=== PATIENT | female | born 1985 | race Caucasian/White ===

== ENCOUNTER 2016-05-27 12:19 | Emergency (ER) | payer OTHER ==
[2016-05-27 13:31] VITALS: BP 107/72
[2016-05-27] MEDS ORDERED: Acetaminophen TAB* 325 MG PO ONE (14:15)
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
[2016-05-27] MEDS ORDERED: Phenylephrine 0.5% NASAL* BTL RIGHT NARE ONE (14:29)
== END 2016-05-27 14:52 | disposition home or self-care (01) ==
LOC: UCCORT 12:19
DX: S09.92XA Unspecified injury of nose, initial encounter (principal); W50.0XXA Accidental hit or strike by another person, initial encounter; Y93.9 Activity, unspecified; Y92.199 Unspecified place in other specified residential institution as the place of occurrence of the external cause; Y99.0 Civilian activity done for income or pay; R04.0 Epistaxis; F17.210 Nicotine dependence, cigarettes, uncomplicated
CPT/HCPCS: 99212; A9270-GY; G0463

== ENCOUNTER 2016-05-31 09:09 | Emergency (ER) | payer SELFPAY ==
[2016-05-31 10:12] VITALS: BP 117/71
--- NOTE | 2016-05-31 10:31 | UC ---
Complaint Female HPI - HPI Summary HPI Summary: The patient comes in today for: 1. Dysuria: Onset: this morning. Palliative/provocative: Worse with urination. Quality: Burning. Region: --inside and outside. Severity: 07/31 Time: Constant. Associated symptoms: Fever: None. Back pain: None. Last UTI: Long time Recent antibiotics. * - History Of Current Complaint Chief Complaint: UCGU Stated Complaint: URINARY Time Seen by Provider: 05/31/16 10:20 Hx Obtained From: Patient Hx Last Menstrual Period: april - Allergies/Home Medications Allergies/Adverse Reactions: Allergies Allergy/AdvReac Type Severity Reaction Status Date / Time No Known Allergies Allergy Verified 05/31/16 10:12 PMH/Surg Hx/FS Hx/Imm Hx Previously Healthy: Yes Endocrine History Of: Denies: Diabetes, Thyroid Disease, Hyperthyroidism, Hypothyroidism, Dyslipidemia Cardiovascular History Of: Denies: Cardiac Disorders, Hypertension, Pacemaker/ICD, Myocardial Infarction , Congestive Heart Failure, Atrial Fibrillation, Deep Vein Thrombosis, Bleeding Disorders Respiratory History Of: Reports: Asthma - She will only use inhaler episodically. Denies: COPD, Bronchitis, Pneumonia, Pulmonary Embolism GI/ History Of: Denies: Gastroesophageal Reflux, Ulcer, Gastrointestinal Bleed, Gall Bladder Disease, Kidney Stones, Diverticulitis, Renal Disease, Urosepsis Neurological History Of: Denies: TIA, CVA, Dementia, Seizures, Migraine Psychological History Of: Denies: Anxiety, Depression, Bipolar Disorder, Schizophrenia, Post Traumatic Stress Disorder Cancer History Of: Denies: Lung Cancer, Colorectal Cancer, Breast Cancer, Prostate Cancer, Cervical Cancer Other History Of: Negative For: HIV, Hepatitis B, Hepatitis C, Anticoagulant Therapy - Surgical History Surgical History: Yes Surgery Procedure, Year, and Place: -TWICE. tubal ligation - Family History Known Family History: Negative: Cardiac Disease, Hypertension - Social History Occupation: Employed Full-time Alcohol Use: None Substance Use Type: None Smoking Status (MU): Heavy Every Day Tobacco Smoker Type: Cigarettes Amount Used/How Often: 1 pack daily Household Exposure Type: Cigarettes Review of Systems Constitutional: Negative Skin: Negative Eyes: Negative ENT: Negative Respiratory: Negative Cardiovascular: Negative Gastrointestinal: Negative Genitourinary: Dysuria, Frequency All Other Systems Reviewed And Are Negative: Yes Physical Exam Triage Information Reviewed: Yes Appearance: Well-Appearing, No Pain Distress, Well-Nourished Vital Signs: Initial Vital Signs Temp 98 F 05/31/16 10:06 Pulse 85 05/31/16 10:06 Resp 20 05/31/16 10:06 BP 117/71 05/31/16 10:06 Vital Signs Reviewed: Yes Eyes: Positive: Conjunctiva Clear. Negative: Discharge ENT: Positive: Hearing grossly normal. Negative: Pharyngeal erythema, Nasal congestion, Nasal drainage, TM bulging, TM dull, TM red, Tonsillar swelling, Tonsillar exudate Dental: Negative: Gross Decay/Caries @, Dental Fracture @ Neck: Positive: Supple, Nontender, No Lymphadenopathy. Negative: Nuchal Rigidity Respiratory: Positive: Chest non-tender, Normal breath sounds, No respiratory distress, No accessory muscle use. Negative: Crackles, Wheezing, Expiration, Inspiration Cardiovascular: Positive: RRR, No Murmur Abdomen Description: Positive: Nontender, No Organomegaly, Soft. Negative: CVA Tenderness (R), CVA Tenderness (L) Musculoskeletal: Positive: Strength Intact, ROM Intact Neurological: Positive: Alert, Muscle Tone Normal Psychological: Positive: Age Appropriate Behavior, Consolable Skin: Negative: rashes, breakdown Diagnostics - Laboratory Diagnostic Studies Completed/Ordered: Urine screen: Specific gravity: 1.030. WBC: 2+. Nitrite: (-). Blood: 2+. Protein: 1+. Glucose: (-) Complaint Female Dx - Differential Dx/Diagnosis Differential Diagnosis/HQI/PQRI: Renal Colic, Ureteral Stone Provider Diagnoses: UTI Discharge - Discharge Plan Condition: Stable Disposition: HOME Patient Education Materials: Urinary Tract Infection in Women (ED) Referrals: No Primary Care Phys,NOPCP [Primary Care Provider] - 1 Week (Please see your primary care provider in about a week. If you don't have a primary care provider, please reference the included sheet of local provider. If you get worse, please be seen sooner.)
[2016-05-31] MEDS ORDERED: Phenazopyridine TAB* 100 MG PO ONE (10:33)
[2016-05-31] MEDS ORDERED: Sulfamethox/Trimethoprim DS 800/160* TAB PO ONE (10:33)
== END 2016-05-31 10:45 | disposition home or self-care (01) ==
LOC: UCCORT 09:09
DX: N39.0 Urinary tract infection, site not specified (principal); J45.909 Unspecified asthma, uncomplicated; F17.210 Nicotine dependence, cigarettes, uncomplicated
CPT/HCPCS: 81003; 87077; 87086; 87186; 99212; A9270-GY; G0463

== ENCOUNTER 2016-10-16 18:11 | Emergency (ER) | payer OTHER ==
[2016-10-16 19:16] VITALS: BP 103/62
--- NOTE | 2016-10-16 19:25 | UC ---
Throat Pain/Nasal Addison HPI - HPI Summary HPI Summary: C/O sore throat and body aches since yesterday. - History of Current Complaint Chief Complaint: UCGeneralIllness Stated Complaint: SORE THROAT,BODY ACHES Time Seen by Provider: 10/16/16 19:18 Hx Obtained From: Patient Hx Last Menstrual Period: 10/08/16 ?: No Onset/Duration: Sudden Onset - sore throat yesterday., Lasting Days - 1, Worse Since - onset with more difficulty swollowing. Severity: Moderate Cough: None Associated Signs & Symptoms: Positive: Dysphagia, Hoarseness. Negative: Nasal Discharge, Vomiting, Rash Related History: Smoking - Allergies/Home Medications Allergies/Adverse Reactions: Allergies Allergy/AdvReac Type Severity Reaction Status Date / Time No Known Allergies Allergy Verified 10/16/16 19:12 Home Medications: Home Medications Ibuprofen TAB* [Advil TAB*] 800 mg PO Q8H PRN 10/16/16 [History Confirmed ] PMH/Surg Hx/FS Hx/Imm Hx Previously Healthy: Yes Other History Of: Negative For: HIV, Hepatitis B, Hepatitis C, Anticoagulant Therapy - Surgical History Surgical History: Yes Surgery Procedure, Year, and Place: -TWICE. tubal ligation - Family History Known Family History: Positive: None Negative: Cardiac Disease, Hypertension - Social History Occupation: Employed Full-time Lives: With Family Alcohol Use: None Substance Use Type: None Smoking Status (MU): Heavy Every Day Tobacco Smoker Type: Cigarettes Amount Used/How Often: 1/2 pack daily Household Exposure Type: Cigarettes Review of Systems ENT: Sore Throat Musculoskeletal: Myalgia All Other Systems Reviewed And Are Negative: Yes Physical Exam Triage Information Reviewed: Yes Appearance: No Pain Distress, Well-Nourished, Ill-Appearing Vital Signs: Initial Vital Signs Temp 100.0 F 10/16/16 19:13 Pulse 101 10/16/16 19:13 Resp 16 10/16/16 19:13 BP 103/62 10/16/16 19:13 Pulse Ox 100 10/16/16 19:13 Vital Signs Reviewed: Yes Eyes: Positive: Conjunctiva Clear ENT: Positive: Pharyngeal erythema, TMs normal, Tonsillar swelling, Tonsillar exudate Neck: Positive: Tenderness @ - Anterior cervical nodes, Enlarged Nodes @ - Anterior cervical Respiratory Exam: Normal Cardiovascular Exam: Normal Musculoskeletal Exam: Normal Neurological Exam: Normal Psychological Exam: Normal Skin Exam: Normal Throat Pain/Nasal Course/Dx - Differential Dx/Diagnosis Differential Diagnosis/HQI/PQRI: Otitis Media, Pharyngitis, Sinusitis Provider Diagnoses: Acute streptococcal pharyngitis. Discharge - Discharge Plan Condition: Stable Disposition: HOME Prescriptions: Amoxicillin PO (*) [Amoxicillin 875 MG (*)] 875 mg PO BID #20 tab Patient Education Materials: Strep Throat (ED), Amoxicillin (By mouth) Forms: *Work Release
[2016-10-16] MEDS ORDERED: Amoxicillin PO (*) 500 MG CAP PO ONE (19:39)
== END 2016-10-16 19:57 | disposition home or self-care (01) ==
LOC: UCCORT 18:11
DX: J02.0 Streptococcal pharyngitis (principal); M79.1 Myalgia; F17.210 Nicotine dependence, cigarettes, uncomplicated
CPT/HCPCS: 87651; 99212; A9270-GY; G0463

== ENCOUNTER 2017-09-22 19:04 | Emergency (ER) | payer OTHER ==
[2017-09-22 19:40] VITALS: BP 110/69
--- NOTE | 2017-09-22 20:11 | UC ---
Throat Pain/Nasal Addison HPI - HPI Summary HPI Summary: Pt c/o gradual onset of sore throat ~ 1 week ago that has improved since onset. Now pt reports that pain is in lower part of esophagus and upper chest. Pt states that it feels different than heartburn. The discomfort is intermittent. In NAD at time of exam. Pt denies chest pain, SOB nausea, vomiting, fever. - History of Current Complaint Chief Complaint: UCRespiratory Stated Complaint: THROAT PAIN Time Seen by Provider: 09/22/17 19:44 Hx Obtained From: Patient Hx Last Menstrual Period: 09/10/17 ?: No Onset/Duration: Gradual Onset, Lasting Days, Still Present Severity: Moderate Pain Intensity: 8 Associated Signs & Symptoms: Positive: Dysphagia - Epiglottits Risk Factors Epiglottis Risk Factors: Negative - Allergies/Home Medications Allergies/Adverse Reactions: Allergies Allergy/AdvReac Type Severity Reaction Status Date / Time No Known Allergies Allergy Verified 09/22/17 19:34 PMH/Surg Hx/FS Hx/Imm Hx Previously Healthy: Yes Other History Of: Negative For: HIV, Hepatitis B, Hepatitis C, Anticoagulant Therapy - Surgical History Surgical History: Yes Surgery Procedure, Year, and Place: -TWICE. tubal ligation - Family History Known Family History: Positive: None Negative: Cardiac Disease, Hypertension - Social History Occupation: Employed Full-time Lives: With Family Alcohol Use: None Substance Use Type: None Smoking Status (MU): Heavy Every Day Tobacco Smoker Type: Cigarettes Amount Used/How Often: 1/2 pack daily Have You Smoked in the Last Year: Yes Household Exposure Type: Cigarettes Review of Systems Constitutional: Negative Skin: Negative Eyes: Negative ENT: Sore Throat Respiratory: Negative Cardiovascular: Chest Pain Gastrointestinal: Negative Genitourinary: Negative Motor: Negative Neurovascular: Negative Musculoskeletal: Negative Neurological: Negative Psychological: Negative Is Patient Immunocompromised?: No All Other Systems Reviewed And Are Negative: Yes Physical Exam Triage Information Reviewed: Yes Appearance: Well-Appearing Vital Signs: Initial Vital Signs Temp 98 F 09/22/17 19:35 Pulse 96 09/22/17 19:35 Resp 20 09/22/17 19:35 BP 110/69 09/22/17 19:35 Pulse Ox 99 09/22/17 19:35 Vital Signs Reviewed: Yes Eye Exam: Normal ENT Exam: Normal ENT: Positive: Normal ENT inspection Dental Exam: Normal Neck exam: Normal Neck: Positive: Supple, Nontender, No Lymphadenopathy Respiratory Exam: Normal Respiratory: Positive: Chest non-tender, Lungs clear, Normal breath sounds Cardiovascular Exam: Normal Cardiovascular: Positive: RRR Musculoskeletal Exam: Normal Neurological Exam: Normal Psychological Exam: Normal Skin Exam: Normal Throat Pain/Nasal Course/Dx - Differential Dx/Diagnosis Provider Diagnoses: dysphagia. chest pain. GERD Discharge - Sign-Out/Discharge Documenting (check all that apply): Patient Departure - Discharge Plan Condition: Stable Disposition: HOME Patient Education Materials: Dysphagia (ED) Referrals: No Primary Care Phys,NOPCP [Primary Care Provider] - [facility] [Outside] - As Soon As Possible Additional Instructions: Please establish care with a PCP as soon as possible. If your symptoms do not improve or they worsen, please seek care at the closest healthcare facility as soon as possible. Per institutional requirements, I have reviewed the chart, however, I was not consulted specifically or made aware of this patient by the above midlevel provider. I did not personally evaluate, interact with , or disposition this patient. - Billing Disposition and Condition Condition: STABLE Disposition: Home
== END 2017-09-22 20:20 | disposition home or self-care (01) ==
LOC: UCCORT 19:04
DX: R13.10 Dysphagia, unspecified (principal); R07.9 Chest pain, unspecified; K21.9 Gastro-esophageal reflux disease without esophagitis; F17.210 Nicotine dependence, cigarettes, uncomplicated
CPT/HCPCS: 87651; 99211; G0463

== ENCOUNTER 2018-03-31 13:27 | Emergency (ER) | payer OTHER ==
[2018-03-31 14:49] VITALS: BP 111/69
--- NOTE | 2018-03-31 15:53 | UC ---
Throat Pain/Nasal Addison HPI - HPI Summary HPI Summary: Pt c/o sudden onset of ST , body aches, fever, and fatigue X 3 days. - History of Current Complaint Chief Complaint: UCRespiratory Stated Complaint: ST Time Seen by Provider: 03/31/18 15:44 Hx Obtained From: Patient Hx Last Menstrual Period: 03/20/18 ?: No Onset/Duration: Sudden Onset, Lasting Days, Still Present Severity: Mild Pain Intensity: 4 Cough: None Associated Signs & Symptoms: Positive: Dysphagia, Fever - Epiglottits Risk Factors Epiglottis Risk Factors: Sudden Onset - Allergies/Home Medications Allergies/Adverse Reactions: Allergies Allergy/AdvReac Type Severity Reaction Status Date / Time No Known Allergies Allergy Verified 03/31/18 14:45 PMH/Surg Hx/FS Hx/Imm Hx Previously Healthy: Yes Other History Of: Negative For: HIV, Hepatitis B, Hepatitis C, Anticoagulant Therapy - Surgical History Surgical History: Yes Surgery Procedure, Year, and Place: -TWICE. tubal ligation - Family History Known Family History: Positive: None Negative: Cardiac Disease, Hypertension - Social History Occupation: Employed Full-time Lives: With Family Alcohol Use: None Substance Use Type: None Smoking Status (MU): Heavy Every Day Tobacco Smoker Type: Cigarettes Amount Used/How Often: 1/2 PPD Have You Smoked in the Last Year: Yes Household Exposure Type: Cigarettes Review of Systems All Other Systems Reviewed And Are Negative: Yes Constitutional: Positive: Fever, Chills, Fatigue Skin: Positive: Negative Eyes: Positive: Negative ENT: Positive: Sore Throat Respiratory: Positive: Negative Cardiovascular: Positive: Negative Gastrointestinal: Positive: Negative Genitourinary: Positive: Negative Motor: Positive: Negative Neurovascular: Positive: Negative Musculoskeletal: Positive: Myalgia Neurological: Positive: Headache Psychological: Positive: Negative Is Patient Immunocompromised?: No Physical Exam Triage Information Reviewed: Yes Appearance: Ill-Appearing Vital Signs: Initial Vital Signs Temp 97.4 F 03/31/18 14:45 Pulse 79 03/31/18 14:45 Resp 16 03/31/18 14:45 BP 111/69 03/31/18 14:45 Pulse Ox 100 03/31/18 14:45 Vital Signs Reviewed: Yes Eye Exam: Normal ENT: Positive: Pharyngeal erythema, Tonsillar swelling Neck exam: Normal Neck: Positive: Enlarged Nodes @ - bialteral submandibular Respiratory Exam: Normal Cardiovascular Exam: Normal Musculoskeletal Exam: Normal Neurological Exam: Normal Psychological Exam: Normal Skin Exam: Normal Throat Pain/Nasal Course/Dx - Differential Dx/Diagnosis Differential Diagnosis/HQI/PQRI: Influenza, Pharyngitis, Tonsillitis Provider Diagnosis: Tonsillitis Discharge - Sign-Out/Discharge Documenting (check all that apply): Patient Departure All imaging exams completed and their final reports reviewed: No Studies - Discharge Plan Condition: Stable Disposition: HOME Prescriptions: Amoxicillin PO (*) [Amoxicillin 500 MG CAP*] 500 mg PO Q12H #20 cap Patient Education Materials: Tonsillitis (ED) Referrals: [facility] [Outside] - If Needed No Primary Care Phys,NOPCP [Primary Care Provider] - - Billing Disposition and Condition Condition: STABLE Disposition: Home
== END 2018-03-31 15:59 | disposition home or self-care (01) ==
LOC: UCCORT 13:27
DX: J03.90 Acute tonsillitis, unspecified (principal); F17.210 Nicotine dependence, cigarettes, uncomplicated
CPT/HCPCS: 99212; G0463

== ENCOUNTER 2018-07-26 16:23 | Emergency (ER) | payer OTHER | END 2018-07-26 17:23 | disposition left against medical advice (07) | LOC: UCCORT 16:23 | DX: K08.9 Disorder of teeth and supporting structures, unspecified (principal); Z53.21 Procedure and treatment not carried out due to patient leaving prior to being seen by health care provider ==

== ENCOUNTER 2018-07-26 19:44 | Emergency (ER) | payer OTHER ==
[2018-07-26 21:02] VITALS: BP 129/72
--- NOTE | 2018-07-26 21:20 | UC ---
UC General HPI - HPI Summary HPI Summary: pain and swelling R lower jaw by a bad tooth. pain x 1 week. swelling today. taking otc medication with no relief. Called [facility], has an appt for this coming Tuesday. - History of Current Complaint Chief Complaint: UCDentalProblem Stated Complaint: TOOTH COMP Time Seen by Provider: 07/26/18 21:13 Hx Obtained From: Patient Hx Last Menstrual Period: ONSET TODAY Onset/Duration: Gradual Onset Timing: Constant Pain Intensity: 9 Associated Signs & Symptoms: Negative: Fever, Headache - Allergy/Home Medications Allergies/Adverse Reactions: Allergies Allergy/AdvReac Type Severity Reaction Status Date / Time No Known Allergies Allergy Verified 07/26/18 20:55 Home Medications: Home Medications Acetaminophen [Mapap] 1,000 mg PO Q8H PRN 07/26/18 [History Confirmed 07/26/18] Ibuprofen TAB* [Advil TAB*] 800 mg PO Q6H PRN 07/26/18 [History Confirmed ] PMH/Surg Hx/FS Hx/Imm Hx Previously Healthy: Yes Other History Of: Negative For: HIV, Hepatitis B, Hepatitis C, Anticoagulant Therapy - Surgical History Surgical History: Yes Surgery Procedure, Year, and Place: -TWICE. tubal ligation - Family History Known Family History: Positive: None Negative: Cardiac Disease, Hypertension - Social History Alcohol Use: None Substance Use Type: None Smoking Status (MU): Heavy Every Day Tobacco Smoker Type: Cigarettes Amount Used/How Often: 1/2 PPD Have You Smoked in the Last Year: Yes Household Exposure Type: Cigarettes Review of Systems All Other Systems Reviewed And Are Negative: No Constitutional: Negative: Fever, Chills ENT: Positive: Dental Pain Musculoskeletal: Positive: Edema - R jaw Neurological: Negative: Headache Physical Exam Triage Information Reviewed: Yes Appearance: Pain Distress Vital Signs: Initial Vital Signs Temp 97.9 F 07/26/18 20:57 Pulse 66 07/26/18 20:57 Resp 16 07/26/18 20:57 BP 129/72 07/26/18 20:57 Pulse Ox 100 07/26/18 20:57 Vital Signs Reviewed: Yes Eyes: Positive: Conjunctiva Clear ENT: Positive: Pharynx normal, TMs normal. Negative: Nasal congestion, Nasal drainage Dental: Positive: Gross Decay/Caries @ - R lower molars, Abscess @ - R gum by R lower molars but not fluctuant, Other: - no sublingual swelling or tenderness. Neck: Positive: Supple, Nontender, No Lymphadenopathy Respiratory: Positive: No respiratory distress Musculoskeletal: Positive: ROM Intact Neurological: Positive: Alert Psychological: Positive: Age Appropriate Behavior Skin Exam: Normal Skin: Negative: Rashes Course/Dx - Differential Dx - Multi-Symptom Differential Diagnoses: Other - no concern for ludwigs angina - Diagnoses Provider Diagnosis: Gum abscess Discharge - Sign-Out/Discharge Documenting (check all that apply): Patient Departure All imaging exams completed and their final reports reviewed: No Studies - Discharge Plan Condition: Stable Disposition: HOME Prescriptions: Clindamycin Cap(NF) [Clindamycin Cap 300 mg Cap(NF)] 300 mg PO Q6H 10 Days #40 cap Hydrocodone/Acetaminophen [Twain 5-325 Tablet] 1 each PO Q6HR PRN #15 tablet MDD 4 PRN Reason: Pain (Dental) Patient Education Materials: Dental Abscess (ED) Referrals: No Primary Care Phys,NOPCP [Primary Care Provider] - Additional Instructions: FOLLOW UP WITH [facility] SCHEDULED FOR THIS COMING TUESDAY. GO TO THE ER FOR ANY WORSENING. - Billing Disposition and Condition Condition: STABLE Disposition: Home
[2018-07-26] MEDS ORDERED: HYDROcodone/ACETAMIN 5-325 MG* 1 TAB PO ONE (21:21)
[2018-07-26] MEDS ORDERED: Clindamycin CAP* 150 MG PO ONE (21:22)
== END 2018-07-26 21:40 | disposition home or self-care (01) ==
LOC: UCCORT 19:44
DX: K05.219 Aggressive periodontitis, localized, unspecified severity (principal); F17.210 Nicotine dependence, cigarettes, uncomplicated
CPT/HCPCS: 99213; A9270-GY; G0463

== ENCOUNTER 2020-11-05 06:43 | Observation (INO) ==
[~2020-11-05 06:43] MED LIST: Buffered Lidocaine 1% SYRIN 1 ml INTRADERM ONE; DiMENhydriNATE IV 50 mg/ml 1 ml VIAL IV PUSH ONE; HYDROcodone/ACETAMIN 5/325 mg TAB PO PRN; Lactated Ringers 1000 ml BAG 1,000 ML IV SCH; Metoclopramide 5 MG/ML VIAL (10 mg) IV PRN; Naloxone 0.4 mg VIAL 0.4 mg/ml 1 ml VIAL IV PRN; Ondansetron 4 mg VIAL 2 MG/ML 2 ml VIAL IV PRN; fentaNYL 100 mcg/2 ml 50 MCG/ML VIAL IV PRN
[2020-11-05] MEDS ORDERED: Heparin 5000 UNITS/ML 1 mL VIAL ONE (07:36)
[2020-11-05] MEDS ORDERED: Ondansetron ODT 4 mg TAB 4 MG TAB ONE (07:36)
[2020-11-05] MEDS ORDERED: ceFAZolin 2 GM in NS PREMIX 2 GM/100 ML BAG IVPB ONE (07:36)
[2020-11-05] MEDS ORDERED: Bupivacaine 0.25% SDV 30 ML ONE (08:02)
[2020-11-05] MEDS ORDERED: Dexamethasone IV 4 MG/ML VIAL 1 ml VIAL ONE (08:05)
[2020-11-05] MEDS ORDERED: Propofol 10 MG/ML 20 ML BTL ONE (08:05)
[2020-11-05] MEDS ORDERED: Ondansetron 4 mg VIAL 2 MG/ML 2 ml VIAL ONE ×2 (08:05→17:18)
[2020-11-05] MEDS ORDERED: Lidocaine 2% PF 5 ML VIAL ONE (08:05)
[2020-11-05] MEDS ORDERED: Rocuronium 50 mg VIAL 10 mg/ml 5 ml VIAL (50 mg) ONE ×3 (08:06→13:52)
[2020-11-05] MEDS ORDERED: fentaNYL 250 mcg/5 ml 50 MCG/ML 5 ml VIAL (250 MCG) ONE ×2 (08:06→12:25)
[2020-11-05] MEDS ORDERED: Midazolam 2 mg/2 ml VIAL 1 mg/ml 2 ml VIAL (2 mg) ONE (08:06)
[2020-11-05] MEDS ORDERED: Lidocaine 2.5%/Prilocain 2.5% 5 GM TUBE ONE (08:08)
[2020-11-05] MEDS ORDERED: Phenylephrine 40 mcg/mL 10mL (400mcg) SYRINGE ONE ×2 (10:12→11:48)
[2020-11-05] MEDS ORDERED: Phenylephrine IV 10 MG/ML 1 ml VIAL ONE ×2 (11:52→11:53)
[2020-11-05] MEDS ORDERED: HYDROmorphone 1 MG/1 ML SYRINGE ONE (13:28)
[2020-11-05] MEDS ORDERED: ceFAZolin VIAL VIAL ONE ×2 (13:50)
[2020-11-05] MEDS ORDERED: diPHENhydraMINE 25 mg TAB PO PRN (15:44)
[2020-11-05] MEDS ORDERED: Morphine 2 MG/ML SYRINGE IV PRN (15:45)
[2020-11-05] MEDS ORDERED: oxyCODONE/Acetamin 5/325 mg TAB PO PRN (15:47)
[2020-11-05] MEDS ORDERED: HYDROcodone/ACETAMIN 5/325 mg TAB ONE (16:28)
[2020-11-05 16:54] LABS: Urine Appearance Clear; Urine Bilirubin Negative (Negative); Urine Blood 1+ (Negative); Urine Color Amber; Urine Glucose Negative (Negative); Urine Ketones Negative (Negative); Urine Nitrite Positive (Negative); Urine Protein Negative (Negative); Urine Specific Gravity 1.009 (1.002-1.030); Urine Urobilinogen Positive (Negative)
[2020-11-05 17:46] LABS: Urine Bacteria 2+ (Absent); Urine Red Blood Cell Trace(0-2/hpf) (Absent); Urine Squamous Epithelial Cell Present (Absent); Urine White Blood Cell 1+(6-10/hpf) (Absent)
[2020-11-05] MEDS ORDERED: Scopolamine PATCH Remove NOTE PATCH OFF ONE (18:40)
[2020-11-05] MEDS ORDERED: Ondansetron 4 mg VIAL 2 MG/ML 2 ml VIAL IV PRN (19:01)
[2020-11-05] MEDS: oxyCODONE/Acetamin 5/325 mg TAB PO PRN ×2 (19:44→23:34)
[2020-11-06] MEDS: oxyCODONE/Acetamin 5/325 mg TAB PO PRN (07:42)
[2020-11-06 07:58] VITALS: BP 92/55
== END 2020-11-06 11:40 | disposition home or self-care (01) ==
LOC: SSU 06:43 → OR 06:43
PROVIDERS: ADMIT Obstetrics & Gynecology; ATTEND Surgery